=== PATIENT | male | born 1955 | race Caucasian/White ===

== ENCOUNTER 2021-07-20 12:18 | Emergency (ER) | payer OTHER ==
[~2021-07-20] VITALS: Ht 190.5 cm; Wt 122.5 kg
[2021-07-20] MEDS ORDERED: FLOMAX0.4 MG PO (12:36)
[2021-07-20] MEDS ORDERED: HYOSCYAMINE0.375 M1 PO (12:37)
[2021-07-20] MEDS ORDERED: ROPINIROLE HCL0.5 MG PO (12:37)
[2021-07-20] MEDS ORDERED: HYDROCODON-ACE1 EAC7 PO (14:34)
[2021-07-20 14:44] VITALS: BP 116/63
== END 2021-07-20 14:45 | disposition home or self-care (01) ==
LOC: M.ERS 12:18
DX: S81.812A Laceration without foreign body, left lower leg, initial encounter (principal); J45.909 Unspecified asthma, uncomplicated; Z98.890 Other specified postprocedural states; Z79.899 Other long term (current) drug therapy; Z88.2 Allergy status to sulfonamides; W22.8XXA Striking against or struck by other objects, initial encounter; Y93.89 Activity, other specified; Y92.89 Other specified places as the place of occurrence of the external cause; Y99.8 Other external cause status